=== PATIENT | male | born 1980 | race African-American/Black ===

== ENCOUNTER 2020-09-07 02:51 | Emergency (ER) | payer OTHER ==
[~2020-09-07] VITALS: Ht 193 cm; Wt 96.0 kg
[2020-09-07] MEDS ORDERED: SODIUM CHLORIDE 0.9% 1,000 ML IV ONE ×2 (03:30→06:45)
[2020-09-07] MEDS ORDERED: LIDOCAINE HCL/PF 1% 10 MG/ML 5ML VIAL INFIL ONE (03:30)
[2020-09-07 03:47] LABS: HEMATOCRIT. 30.4 % (42.0-52.0); HEMOGLOBIN. 9.7 g/dL (14.0-18.0); MEAN CORPUSCULAR HEMOGLOBIN 26.4 pg (28.0-32.0); MEAN CORPUSCULAR VOLUME 83.1 fL (80.0-94.0); MEAN PLATELET VOLUME 8.3 fl (7.4-10.4); PLATELET 436 x1000/uL (130-400); RED BLOOD CELL COUNT 3.66 mill/uL (4.7-6.1); RED CELL DISTRIBUTION WIDTH 17.5 % (11.6-14.6)
[2020-09-07] MEDS ORDERED: WATER IV NR (04:00)
[2020-09-07] MEDS ORDERED: PHENYLEPHRINE IV NR (04:00)
[2020-09-07] MEDS ORDERED: DEXTROSE 5% IV NR (04:00)
[2020-09-07 04:08] LABS: CHLORIDE 106 mEq/L (98-107)
[2020-09-07 05:52] LABS: BG FRACTION INSPIRED OXYGEN 21; BG HCO3 ACT 22.7 mmol/L (22.0-26.0); BG PCO2 43.1 mmHg (35.0-45.0); BG PO2 60.8 mmHg (75.0-100.0); BG SAMPLE SITE RIGHT FEMORAL; BG VENT MODE ROOM AIR
[2020-09-07] MEDS ORDERED: HYDROMORPHONE HCL/PF 2MG/ML CPJ IV ONE ×4 (06:15→14:45)
[2020-09-07 06:33] LABS: PLATELET ESTIMATE SLIGHTLY INCREASED
[2020-09-07 15:11] LABS: CLARITY URINE CLEAR (CLEAR); COLOR URINE YELLOW (YELLOW); KETONES URINE NEGATIVE (NEGATIVE); LEUKOCYTE ESTERASE URINE NEGATIVE (NEGATIVE); NITRITE URINE NEGATIVE (NEGATIVE); OCCULT BLOOD URINE 2+ (NEGATIVE); PROTEIN URINE NEGATIVE (NEGATIVE); SPECIFIC GRAVITY URINE 1.014 (1.005-1.030); UROBILINOGEN URINE 0.2 E.U./dL (0.2-1.0)
[2020-09-07] MEDS ORDERED: HYDROXYUREA 500MG CAPSULE PO ONE ×2 (15:45→16:00)
[2020-09-07 17:27] VITALS: BP 109/71
== END 2020-09-07 18:31 | disposition short-term general hospital (02) ==
LOC: ER 02:51
DX: N48.30 Priapism, unspecified (principal); C95.90 Leukemia, unspecified not having achieved remission; E86.0 Dehydration
CPT/HCPCS: 36415; 36600; 80048; 81003; 82805; 85025; 96361; 96365; 96375; 96376; 99285; J1170; J2370; J3490; J7030; J7060; Z7610